=== PATIENT | female | born 1960 | race Two or more races ===

== ENCOUNTER 2020-01-11 14:09 | Outpatient (CLI) | payer OTHER ==
[~2020-01-11 14:09] MED LIST: LEVOTHROID50 MCG; ORPH100T PO
== END 2020-01-11 14:51 | disposition home or self-care (01) ==
LOC: MAMO-SONO 14:09
DX: Z12.31 Encounter for screening mammogram for malignant neoplasm of breast (principal); Z87.898 Personal history of other specified conditions; N64.4 Mastodynia

== ENCOUNTER 2021-09-25 13:38 | Outpatient (CLI) | payer OTHER | END 2021-09-25 13:52 | disposition home or self-care (01) | LOC: RAD 13:38 | DX: Z01.89 Encounter for other specified special examinations (principal) ==

== ENCOUNTER 2024-12-21 12:07 | Outpatient (CLI) | payer OTHER | END 2024-12-21 12:15 | disposition home or self-care (01) | LOC: RAD 12:07 | PROVIDERS: ATTEND Otolaryngology Otolaryngology/Facial Plastic Surgery | DX: Z01.89 Encounter for other specified special examinations (principal) ==